=== PATIENT | female | born 1930 | race Caucasian/White ===

== ENCOUNTER 2020-07-03 06:44 | Day surgery (SDC) | payer MEDICARE, MEDICAID ==
[~2020-07-03] VITALS: Ht 154.9 cm; Wt 84.4 kg
[2020-07-03 07:46] VITALS: BP 138/84
[2020-07-03] MEDS ORDERED: PANT40TA6 PO (07:46)
[2020-07-03] MEDS ORDERED: TRULICITY SC (07:46)
[2020-07-03] MEDS ORDERED: INSU100V8 SQ (07:46)
[2020-07-03] MEDS ORDERED: LEVOTHYROXINE PO (07:46)
[2020-07-03] MEDS ORDERED: GABA300C PO (07:46)
[2020-07-03] MEDS ORDERED: LACTATED RINGERS 1,000 ML IV SCH (08:00)
[2020-07-03] MEDS ORDERED: CHLORHEXIDINE 15 ML UDC PO ONE (08:00)
[2020-07-03] MEDS ORDERED: CHLORHEXIDINE 15 ML UDC ONE (08:08)
[2020-07-03 08:25] LABS: ALANINE AMINOTRANSFERASE 17 U/L (12-78); ANION GAP 5 mmol/L (5-15); CALCIUM 8.4 mg/dL (8.5-10.1); CHLORIDE 110 mmol/L (98-107)
[2020-07-03 08:28] LABS: ALKALINE PHOSPHATASE 61 U/L (45-117); BILIRUBIN,TOTAL 0.5 mg/dL (0.2-1.0); TOTAL PROTEIN 5.9 g/dL (6.4-8.2)
[2020-07-03] MEDS ORDERED: PROPOFOL 50 ML ONE (08:50)
[2020-07-03] MEDS ORDERED: PROPOFOL 10 MG/ML, 20ML ONE (08:50)
[2020-07-03] MEDS ORDERED: potassium PO (08:52)
[2020-07-03] MEDS ORDERED: POLY17PO5 PO (08:52)
[2020-07-03] MEDS ORDERED: ERGO2000 PO (08:52)
[2020-07-03] MEDS ORDERED: ASPI325T17 PO (08:52)
[2020-07-03] MEDS ORDERED: MAGN250T8 PO (08:52)
[2020-07-03] MEDS ORDERED: UBID50TA3 PO (08:52)
[2020-07-03] MEDS ORDERED: LEVO75TA5 PO (08:52)
[2020-07-03] MEDS ORDERED: EPHEDRINE 50 MG/ML, 1ML IM PRN (09:00)
[2020-07-03] MEDS ORDERED: ONDANSETRON 2MG/ML, 2ML IVPush PRN (09:00)
[2020-07-03] MEDS ORDERED: EPHEDRINE 50 MG/ML, 1ML IVPush PRN (09:00)
[2020-07-03] MEDS ORDERED: DIPHENHYDRAMINE 50 MG/ML, 1ML IVPush PRN (09:00)
[2020-07-03] MEDS ORDERED: LABETALOL 5MG/ML, 20ML IV PRN (09:00)
[2020-07-03] MEDS ORDERED: FENTANYL PF 100 MCG/2ML IV PRN (09:00)
== END 2020-07-03 10:25 | disposition home or self-care (01) ==
LOC: OUT 06:44
PROVIDERS: ATTEND Internal Medicine Gastroenterology
DX: K31.811 Angiodysplasia of stomach and duodenum with bleeding (principal); K22.8 Other specified diseases of esophagus; J44.9 Chronic obstructive pulmonary disease, unspecified; E11.9 Type 2 diabetes mellitus without complications; I25.10 Atherosclerotic heart disease of native coronary artery without angina pectoris; I48.91 Unspecified atrial fibrillation; E66.9 Obesity, unspecified; Z20.822 Contact with and (suspected) exposure to COVID-19; Z79.899 Other long term (current) drug therapy; Z88.8 Allergy status to other drugs, medicaments and biological substances
CPT/HCPCS: 36415; 43239; 43270; 80053; 82962; 87635; 88305; 93005; J2704; J7120